=== PATIENT | male | born 2000 | race Caucasian/White ===

== ENCOUNTER 2020-09-08 19:28 | Emergency (ER) | payer SELFPAY ==
[~2020-09-08] VITALS: Ht 177.8 cm; Wt 85.7 kg
[2020-09-08 19:38] VITALS: Ht 177.8 cm; Wt 85.7 kg
[2020-09-08 22:09] VITALS: BP 126/82
== END 2020-09-08 22:09 | disposition home or self-care (01) ==
LOC: ED 19:28
DX: I86.1 Scrotal varices (principal); N43.3 Hydrocele, unspecified; Z98.890 Other specified postprocedural states